=== PATIENT | female | born 1940 | race African-American/Black ===

== ENCOUNTER 2022-04-23 19:13 | Inpatient (IN) | payer MEDICARE, OTHER ==
[~2022-04-23] VITALS: Ht 165.1 cm; Wt 62.6 kg
[2022-04-23] MEDS ORDERED: IOHEXOL-350 100 ML BOTTLE ONE (20:30)
[2022-04-23 20:40] LABS: BASOPHILS % 0.6 % (0.0-2.0); EOSINOPHILS % 1.9 % (0.0-5.0); HEMATOCRIT. 31.7 % (36.0-48.0); HEMOGLOBIN. 10.6 g/dL (12.0-16.0); LYMPHOCYTES % 40.2 % (20.0-50.0); MEAN CORPUSCULAR HEMOGLOBIN 30.3 pg (28.0-32.0); MEAN CORPUSCULAR VOLUME 90.4 fL (81.0-99.0); MEAN PLATELET VOLUME 8.3 fl (7.4-10.4); NEUTROPHILS % 47.3 % (40.0-76.0); PLATELET 254 x1000/uL (130-400); RED CELL DISTRIBUTION WIDTH 14.5 % (11.6-14.6)
[2022-04-23 20:50] LABS: CHLORIDE 94 mEq/L (98-107)
[2022-04-23 21:00] LABS: ETHANOL BLOOD < 10 mg/dL
[2022-04-24] MEDS: ASPIRIN 81MG TABLET PO SCH (09:00)
[2022-04-24] MEDS ORDERED: ACETAMINOPHEN 325MG TABLET PO PRN (09:00)
[2022-04-24] MEDS ORDERED: ONDANSETRON HCL 4MG/2ML INJ IV PRN (09:00)
[2022-04-24] MEDS: ENOXAPARIN 40MG/0.4ML SYR SUBCUT SCH (09:30)
[2022-04-24 14:02] VITALS: BP 138/76
[2022-04-24 14:09] VITALS: BP 138/76
[2022-04-24] MEDS ORDERED: ATOR20TA65 PO (14:26)
[2022-04-24] MEDS ORDERED: AMLO5TAB88 PO (14:26)
[2022-04-24 16:00] VITALS: BP 109/62
[2022-04-24 18:00] VITALS: BP 112/66
[2022-04-24 20:00] VITALS: BP_SYST 124; BP_SYST 142; BP_DIAS 68; BP_DIAS 75
[2022-04-24] MEDS ORDERED: ATORVASTATIN CALCIUM 40MG TABLET PO SCH (21:00)
[2022-04-25] VITALS: BP 139/51
[2022-04-25 04:00] VITALS: BP 141/71
[2022-04-25 04:51] LABS: CLARITY URINE CLEAR (CLEAR); COLOR URINE YELLOW (YELLOW); KETONES URINE NEGATIVE (NEGATIVE); LEUKOCYTE ESTERASE URINE NEGATIVE (NEGATIVE); NITRITE URINE NEGATIVE (NEGATIVE); OCCULT BLOOD URINE NEGATIVE (NEGATIVE); PROTEIN URINE NEGATIVE (NEGATIVE); SPECIFIC GRAVITY URINE 1.009 (1.005-1.030); UROBILINOGEN URINE 0.2 E.U./dL (0.2-1.0)
[2022-04-25 05:00] LABS: *AMPHETAMINES SCREEN URINE NEGATIVE (NEGATIVE); *BARBITURATES SCREEN URINE NEGATIVE (NEGATIVE); *BENZODIAZEPINES SCREEN URINE NEGATIVE (NEGATIVE); *COCAINE SCREEN URINE NEGATIVE (NEGATIVE); CANNABINOID URINE SCREEN NEGATIVE (NEGATIVE); METHADONE URINE SCREEN NEGATIVE (NEGATIVE); OPIATES URINE SCREEN NEGATIVE (NEGATIVE); PHENCYCLIDINE URINE SCREEN NEGATIVE (NEGATIVE)
[2022-04-25] MEDS: ENOXAPARIN 40MG/0.4ML SYR SUBCUT SCH (08:08)
[2022-04-25] MEDS: ASPIRIN 81MG TABLET PO SCH (08:08)
[2022-04-25 08:15] VITALS: BP 130/77
[2022-04-25 11:58] VITALS: BP 116/75
[2022-04-25 12:01] VITALS: BP 120/90
[2022-04-25 15:39] VITALS: BP 120/90
[2022-04-25] MEDS ORDERED: LIDO700A30 TOP (16:01)
[2022-04-25] MEDS ORDERED: NAPR-679 PO (16:01)
[2022-04-25] MEDS ORDERED: CYCL10TA21 PO (16:01)
[2022-04-25] MEDS ORDERED: CYCLOBENZAPRINE 10MG TABLET PO PRN (16:09)
[2022-04-25] MEDS ORDERED: NAPROXEN 375MG TABLET PO PRN (16:15)
[2022-04-26] MEDS ORDERED: LIDOCAINE 5% PATCH TOP SCH (09:00)
== END 2022-04-25 16:57 | disposition home or self-care (01) | DRG 552 ==
LOC: ER 20:13 → MICUSO 20:36 → 3WST 04-24 13:59
PROVIDERS: ADMIT Internal Medicine Pulmonary Disease; ATTEND Internal Medicine Pulmonary Disease
DX: S13.4XXA Sprain of ligaments of cervical spine, initial encounter (principal); E87.1 Hypo-osmolality and hyponatremia; M54.10 Radiculopathy, site unspecified; Z20.822 Contact with and (suspected) exposure to COVID-19; D64.9 Anemia, unspecified; I10 Essential (primary) hypertension; E78.5 Hyperlipidemia, unspecified; Z88.0 Allergy status to penicillin; V89.2XXA Person injured in unspecified motor-vehicle accident, traffic, initial encounter; Y93.89 Activity, other specified; Y92.89 Other specified places as the place of occurrence of the external cause; Y99.8 Other external cause status
CPT/HCPCS: 36415; 70496; 70498; 70551; 71045; 80053; 80305; 80320; 81003; 84484; 85025; 86850; 86900; 87426; 93005; 97162; 99291; C9803; J1650; Q9967; G0480